=== PATIENT | female | born 1995 | race Caucasian/White ===

== ENCOUNTER 2018-04-15 17:04 | Emergency (ER) | payer BC ==
[2018-04-15 17:12] VITALS: BP 129/82
[2018-04-15] MEDS ORDERED: Albuterol 2.5 MG/3 ML NEB.SOL* (0.083%) INH ONE (17:14)
[2018-04-15] MEDS ORDERED: predniSONE TAB* 20 MG PO ONE ×2 (17:16→17:46)
--- NOTE | 2018-04-15 17:26 | UC ---
Respiratory Complaint HPI - HPI Summary HPI Summary: Patient is an asthmatic, 5-6 weeks , having difficulty breathing. audible wheezing noted. - History of Current Complaint Chief Complaint: UCGeneralIllness Stated Complaint: COUGH,SOB Time Seen by Provider: 04/15/18 17:13 Hx Obtained From: Patient ?: Yes - 5-6 weeks Onset/Duration: Sudden Onset, Lasting Hours Timing: Constant Severity Initially: Mild Severity Currently: Mild Pain Intensity: 0 Aggravating Factors: Exertion, Deep Breaths, Recumbent Position Alleviating Factors: Nothing Associated Signs And Symptoms: Positive: Dyspnea, Wheezing, URI, Hoarseness - Allergies/Home Medications Allergies/Adverse Reactions: Allergies Allergy/AdvReac Type Severity Reaction Status Date / Time No Known Allergies Allergy Verified 04/15/18 17:12 Home Medications: Home Medications Albuterol HFA INHALER* [Ventolin HFA Inhaler*] 1 puff INH Q4H 04/15/18 [History Confirmed 04/15/18] 21/Iron Fu/Folic Acid [ Complete Caplet] 1 each PO DAILY [History Confirmed 04/15/18] PMH/Surg Hx/FS Hx/Imm Hx Previously Healthy: Yes - Surgical History Surgical History: Yes Surgery Procedure, Year, and Place: ASD REPAIR - Family History Known Family History: Positive: Respiratory Disease - asthma - Social History Alcohol Use: None Substance Use Type: None Smoking Status (MU): Never Smoked Tobacco Review of Systems All Other Systems Reviewed And Are Negative: Yes Constitutional: Positive: Negative Skin: Positive: Negative Eyes: Positive: Negative ENT: Positive: Negative Respiratory: Positive: Shortness Of Breath, Cough Cardiovascular: Positive: Negative Gastrointestinal: Positive: Negative Genitourinary: Positive: Negative Motor: Positive: Negative Neurovascular: Positive: Negative Musculoskeletal: Positive: Negative Neurological: Positive: Negative Psychological: Positive: Negative Is Patient Immunocompromised?: No Physical Exam Triage Information Reviewed: Yes Appearance: Well-Nourished, Ill-Appearing, Pain Distress Vital Signs: Initial Vital Signs Temp 99.6 F 04/15/18 17:09 Pulse 98 04/15/18 17:09 Resp 19 04/15/18 17:09 BP 129/82 04/15/18 17:09 Pulse Ox 99 04/15/18 17:09 Vital Signs Reviewed: Yes Eye Exam: Normal ENT Exam: Normal Dental Exam: Normal Neck exam: Normal Neck: Positive: Supple, Nontender, No Lymphadenopathy Respiratory Exam: Normal Respiratory: Positive: Respiratory distress - moderate, Stridor, Wheezing, Expiration, Inspiration Cardiovascular Exam: Normal Cardiovascular: Positive: RRR, No Murmur, Pulses Normal Abdominal Exam: Normal Abdomen Description: Positive: Nontender, No Organomegaly, Soft Bowel Sounds: Positive: Present Musculoskeletal Exam: Normal Neurological Exam: Normal Psychological Exam: Normal Skin Exam: Normal UC Diagnostic Evaluation - Laboratory O2 Sat by Pulse Oximetry: 99 Re-Evaluation - Re-Evaluation First Eval Change: Improved Respiratory Course/Dx - Course Course Of Treatment: hx obtained, exam performed ,meds reviewed, neb treatment given, prednisone administered - Differential Dx/Diagnosis Differential Diagnosis/HQI/PQRI: Asthma, Exacerbation Of COPD, Lower Resp Infection Provider Diagnosis: Asthma exacerbation Discharge - Sign-Out/Discharge Documenting (check all that apply): Patient Departure All imaging exams completed and their final reports reviewed: No Studies - Discharge Plan Condition: Stable Disposition: HOME Prescriptions: Azithromyxin ABY (NF) [Z-Aby (Zithromax) 250 mg tabs #6] 2 tab PO .TODAY, THEN 1 DAILY #6 tab predniSONE [Prednisone 20 MG TAB] 20 mg PO DAILY #7 tablet Patient Education Materials: Asthma (DC) Referrals: Fatmata Anton MD [Primary Care Provider] - Additional Instructions: 1. use the medication as prescribed. 2. If you develop worsening shortness of breath, please follow up with the ER! - Billing Disposition and Condition Condition: STABLE Disposition: Home
[2018-04-15] MEDS ORDERED: Azithromycin TAB* 250 MG PO ONE (17:45)
== END 2018-04-15 18:01 | disposition home or self-care (01) ==
LOC: UCCORT 17:04
DX: O26.891 Other specified pregnancy related conditions, first trimester (principal); J45.901 Unspecified asthma with (acute) exacerbation; Z3A.01 Less than 8 weeks gestation of pregnancy
CPT/HCPCS: 99203; A9270-GY; G0463; J7512

== ENCOUNTER 2018-12-27 19:19 | Emergency (ER) | payer BC, MEDICAID ==
[2018-12-27 19:49] VITALS: BP 138/89
--- NOTE | 2018-12-27 20:04 | UC ---
Ear Complaint HPI - HPI Summary HPI Summary: 23-year-old woman comes in with a chief complaint of left ear pain. Patient was seen here several weeks ago and started on Cortisporin otic and amoxicillin for bilateral ear infections and pain. The right ear has improved the left ear continues to give her pain. While she was on the oral antibiotic there was some improvement in both ears but the left ear got worse when she stopped the oral antibiotic. No fevers or chills feels well otherwise. - History of Current Complaint Chief Complaint: UCEar Stated Complaint: EAR PAIN Time Seen by Provider: 12/27/18 19:53 Hx Last Menstrual Period: had a baby 6 weeks ago Pain Intensity: 6 - Allergies/Home Medications Allergies/Adverse Reactions: Allergies Allergy/AdvReac Type Severity Reaction Status Date / Time No Known Allergies Allergy Verified 12/27/18 19:46 Home Medications: Home Medications Levonorgestrel (Iud) [Mirena IUD] 20 mcg IU ONCE 12/27/18 [History Confirmed 10/09] PMH/Surg Hx/FS Hx/Imm Hx Previously Healthy: Yes - Surgical History Surgical History: Yes Surgery Procedure, Year, and Place: , 2019, [place]; ASD Repair, ~[facility], [facility] - Family History Known Family History: Positive: Respiratory Disease - asthma - Social History Alcohol Use: Occasionally Substance Use Type: None Smoking Status (MU): Never Smoked Tobacco Review of Systems All Other Systems Reviewed And Are Negative: Yes Constitutional: Positive: Negative Skin: Positive: Negative Eyes: Positive: Negative ENT: Positive: Ear Ache Respiratory: Positive: Negative Cardiovascular: Positive: Negative Gastrointestinal: Positive: Negative Motor: Positive: Negative Neurovascular: Positive: Negative Musculoskeletal: Positive: Negative Neurological: Positive: Negative Psychological: Positive: Negative Is Patient Immunocompromised?: No Physical Exam Triage Information Reviewed: Yes Appearance: Well-Appearing, No Pain Distress, Well-Nourished Vital Signs: Initial Vital Signs Temp 97.8 F 12/27/18 19:44 Pulse 80 12/27/18 19:44 Resp 16 12/27/18 19:44 BP 138/89 12/27/18 19:44 Pulse Ox 100 12/27/18 19:44 Vital Signs Reviewed: Yes Eye Exam: Normal Eyes: Positive: Conjunctiva Clear ENT: Positive: Pharynx normal, TM red - left, Other - Left ear canal has debris in it consistent with continued otitis externa. The right ear canal and TM are normal. Neck: Positive: Supple Respiratory: Positive: Lungs clear, Normal breath sounds, No respiratory distress Cardiovascular: Positive: RRR Musculoskeletal: Positive: Strength Intact, ROM Intact Neurological: Positive: Alert, Muscle Tone Normal Psychological: Positive: Age Appropriate Behavior Skin Exam: Normal Ear Complaint Course/Dx - Course Course Of Treatment: Patient will follow-up with Dr. King if not completely improved. - Differential Dx/Diagnosis Provider Diagnosis: Left otitis media, Left otitis externa Discharge ED - Sign-Out/Discharge Documenting (check all that apply): Patient Departure All imaging exams completed and their final reports reviewed: No Studies - Discharge Plan Condition: Stable Disposition: HOME Prescriptions: Amoxicillin/Clavulanate TAB* [Augmentin TAB 875*] 875 mg PO BID #20 tab Ofloxacin 0.3% (Ear Drop)* [Floxin 0.3% OTIC.KEISHA (Ear Drop)] 5 drop LEFT EAR BID #1 btl Patient Education Materials: Otitis Externa (ED) Referrals: Laurence No NP [Primary Care Provider] - Suleman King MD [Medical Doctor] - Additional Instructions: Switch eardrops to the ofloxacin eardrops. Take the Augmentin as prescribed. Follow-up with ear nose and throat Dr. King if not improving. - Billing Disposition and Condition Condition: STABLE Disposition: Home
== END 2018-12-27 20:08 | disposition home or self-care (01) ==
LOC: UCCORT 19:19
DX: H66.92 Otitis media, unspecified, left ear (principal); H60.92 Unspecified otitis externa, left ear
CPT/HCPCS: 99212; G0463

== ENCOUNTER 2019-07-20 14:08 | Emergency (ER) | payer BC, MEDICAID ==
[2019-07-20 14:55] VITALS: BP 123/73
--- NOTE | 2019-07-20 15:02 | UC ---
Knee Pain HPI - HPI Summary HPI Summary: 24-year-old female who has mullins has had mild bilateral knee pain for the past 2 weeks. She states she bilateral knee pain over the past 2 weeks without any injury. She states today, she sat down in a chair and felt something "rip" in her medial left knee. She thinks it feels like it might give out with walking. She has Merena IUD and has not had a period, but states recentl;y she has had some symptoms "like the last time I was ". She has taken several home tests which have all been negative. As we were discussing this probably being a knee strain, she then states she fell down about 4 weeks ago and has had the left knee since then and she would like an x-ray. - History of Current Complaint Chief Complaint: UCLowerExtremity Stated Complaint: LEFT KNEE Time Seen by Provider: 07/20/19 15:01 Hx Obtained From: Patient Hx Last Menstrual Period: had a baby 8 months ago ?: No Onset/Duration: Gradual Onset, Lasting Weeks Severity Initially: Moderate Severity Currently: Mild Pain Intensity: 6 Character: Dull, Aching Aggravating Factor(s): Weight Bearing Alleviating Factor(s): Rest Associated Signs And Symptoms: Positive: Negative Able to Bear Weight: Yes - Allergies/Home Medications Allergies/Adverse Reactions: Allergies Allergy/AdvReac Type Severity Reaction Status Date / Time No Known Allergies Allergy Verified 07/20/19 14:49 Home Medications: Home Medications Levonorgestrel (Iud) [Mirena IUD] 20 mcg IU ONCE 12/27/18 [History Confirmed ] Omeprazole CAP (NF) [Prilosec CAP* 20 MG] 20 mg PO DAILY 07/20/19 [History Confirmed 07/20/19] PMH/Surg Hx/FS Hx/Imm Hx Previously Healthy: Yes Respiratory History: Asthma Psychological History: Anxiety, Depression - Surgical History Surgical History: Yes Surgery Procedure, Year, and Place: , 2019, [place];. ASD Repair, ~2000 , [facility] - Family History Known Family History: Positive: Respiratory Disease - asthma - Social History Lives: With Family Alcohol Use: Rare Substance Use Type: None Smoking Status (MU): Never Smoked Tobacco Review of Systems All Other Systems Reviewed And Are Negative: Yes Musculoskeletal: Positive: Other: - Mild pain in both knees over the past 4 weeks. Neurological/Mental Status: Positive: Negative Is Patient Immunocompromised?: No Physical Exam Triage Information Reviewed: Yes Appearance: Well-Appearing, No Pain Distress, Well-Nourished Vital Signs: Initial Vital Signs Temp 98.7 F 07/20/19 14:50 Pulse 70 07/20/19 14:50 Resp 18 07/20/19 14:50 BP 123/73 07/20/19 14:50 Pulse Ox 99 07/20/19 14:50 Vital Signs Reviewed: Yes Musculoskeletal: Positive: Strength Intact, ROM Intact, Other: - Good peripheral pulses, neuro sensation and capillary refill. Patellar and knee ligaments intact. She is able to lift her leg up without difficulty. Achilles is intact. Mild tenderness on palpation medial aspect of the left knee. Neurological Exam: Normal Psychological Exam: Normal Skin Exam: Normal Knee Pain Course/Dx - Course Course Of Treatment: Left knee x-ray:Indication: Knee pain. 4 views of the left knee demonstrates no fracture or dislocation. No other bone or joint abnormality is identified. IMPRESSION: No fracture of the left knee is noted. The patient is comfortable here. A knee immobilizer was placed and she is to follow-up with the orthopedist in 3 or 4 days if no improvement. - Differential Dx/Diagnosis Provider Diagnosis: Strain of left knee Discharge ED - Sign-Out/Discharge Documenting (check all that apply): Patient Departure All imaging exams completed and their final reports reviewed: Yes - Discharge Plan Condition: Good Disposition: HOME Patient Education Materials: Knee Sprain (DC) Referrals: Rob Cifuentes MD [Medical Doctor] - Laurence No NP [Primary Care Provider] - Additional Instructions: apply heat to the sore area, take ibuprofen every 8 hours with food, follow up with the orthopedist in 4-5 days if no improvement. - Billing Disposition and Condition Condition: GOOD Disposition: Home
== END 2019-07-20 16:04 | disposition home or self-care (01) ==
LOC: UCCORT 14:08
DX: S86.912A Strain of unspecified muscle(s) and tendon(s) at lower leg level, left leg, initial encounter (principal); X58.XXXA Exposure to other specified factors, initial encounter; Y92.9 Unspecified place or not applicable; M25.562 Pain in left knee; M25.561 Pain in right knee
CPT/HCPCS: 84702; 99212; G0463